=== PATIENT | male | born 1985 | race Caucasian/White ===

== ENCOUNTER → 2017-05-08 | Outpatient (CLI) | payer OTHER ==
[~2017-05-08] VITALS: Ht 190.5 cm; Wt 124.4 kg
[~2017-05-08] MED LIST: ACETAMINOPHEN 1000 MG/100 ML VIAL IV ONE; ACETAMINOPHEN/HYDROcodone 325 MG/5 MG TAB PO PRN; BUPIVACAINE/EPINEPHRINE 0.5% PF 30 ML VIAL ONE; CEPH500C3 PO; CHLORHEXIDINE GLUCONATE 2 % 1 PACK (2 CLOTHS) TOPICAL PRN; DEXAMETHASONE SOD PHOS 4 MG/ML VIAL ONE; DO NOT ADM ANY ANTICOAGULANT DRUGS PRN; FAMOTIDINE 20 MG/2 ML VIAL ONE; INSULIN HUMAN REGULAR 1,000 UNITS/10 ML VIAL SQ PRN; LACTATED RINGER'S 1000 ML INJ 1,000 ML IV ONE; LACTATED RINGER'S 1000 ML IV PRN; LOSA50TA PO; LOSARTAN 50 MG TAB PO SCH; METOPROLOL TARTRATE 25 MG TAB PO PRN; MIDAZOLAM HCL 2 MG/2 ML VIAL ONE; NORC5TAB PO; ONDANSETRON HCL 4 MG/2 ML VIAL IV PUSH ONE; POVIDONE IODINE 5% (ANTISEPSIS KIT) 4 APPLICATIONS EACH NARE PRN; PROPOFOL 200 MG/20 ML AMP IV ONE; SUGAMMADEX SODIUM 200 MG/2 ML VIAL IV PUSH ONE; Z.0.NO CURRENT MEDS; fentaNYL CITRATE 250 MCG/5 ML AMP ONE
[2017-05-08 12:16] VITALS: BP 165/89; PULSE 67; RESP 18; TEMP 97.4; O2SAT 98
[2017-05-08 12:31] LABS: AUTOMATED NEUTROPHIL # 3.7 TH/MM3 (1.8-7.7); BASOPHIL # 0.1 TH/MM3 (0-0.2); BASOPHIL % 1.3 % (0.0-2.0); EOSINOPHIL # 0.1 TH/MM3 (0-0.4); HEMATOCRIT 43.4 % (39.0-51.0); HEMO FLAGS DIFF FINAL; LYMPH % 31.8 % (9.0-44.0); LYMPHOCYTE # 2.1 TH/MM3 (1.0-4.8); MEAN CELL VOLUME 83.5 FL (80.0-100.0); MEAN CORPUSCULAR HEMOGLOBIN 28.6 PG (27.0-34.0); MEAN CORPUSCULAR HGB CONC 34.3 % (32.0-36.0); MONO % 9.2 % (0.0-8.0); NEUT % 55.7 % (16.0-70.0); PLATELET COUNT 214 TH/MM3 (150-450); RED CELL DISTRIBUTION WIDTH 13.5 % (11.6-17.2); WHITE BLOOD COUNT 6.6 TH/MM3 (4.0-11.0)
[2017-05-08 12:48] LABS: BICARBONATE 25.7 MEQ/L (21.0-32.0); POTASSIUM 4.1 MEQ/L (3.5-5.1)
--- NOTE | 2017-05-08 15:15 | HHI.PR ---
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
[2017-05-08 17:00] VITALS: BP 141/89; PULSE 73; RESP 16; TEMP 98.8; O2SAT 96
--- NOTE | 2017-05-09 13:33 | MP ---
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 PROCEDURE 1. Identification of parathyroid adenoma right inferior gland with navigator probe 2. Right inferior parathyroidectomy 3 utilization of neuro monitoring ANESTHESIA General SURGEON Dr. Araujo INDICATION This is a pleasant 32-year-old gentleman who had longstanding hypercalcemia with an elevated PTH and recurrent kidney stones. Plans were made for above after sestamibi scan showed a hyperactive gland in the right inferior portion of the neck. PROCEDURE The patient taken to the operating room, placed in the supine position. After endotracheal anesthesia, his neck was prepped with Betadine. Prior to prepping and draping, we did identify a hot spot in the right inferior side of the neck corresponding to the parathyroid scan. He had been injected about an hour and a half prior to the surgical procedure. We then prepped and draped, a time-out was done, we marked the area in the right neck about 3 cm from the midline, anesthetized with a Marcaine solution. An incision was made about a centimeter and a half. We dissect down through the platysma muscle which was divided, the strap muscles were then divided along the muscle fibers in a vertical fashion. We dissect down where the count was as great as 400 compared to 142 at the contralateral side. We were able to see the thyroid gland and just medial to the carotid was a 2 cm parathyroid adenoma which was easily teased away from the surrounding tissues. There was a single nerve like structure which did not show up on the neuro monitor, but this injury was avoided to this structure. It was somewhat nerve like. The parathyroid adenoma was easily enucleated out from the surrounding tissues using this blunt dissection with a Kitner. Once the blood supply was elevated, we were able to amputate this single vascular structure and ligate it with the harmonic scalpel. This was then measured to be 2 cm and sent down to pathology where Dr. Leung states this is a hypercellular cells consistent with the primary hyperparathyroidism with the clinical picture that I described to him. The area was then irrigated. We checked our side again with the navigator probe. There were no other hot spots, all uniform in four quadrants of the neck. We then assured hemostasis. The platysma muscles were then reapproximated with 3-0 Vicryl and skin with 4-0 Vicryl. Steri-Strips applied. A sterile bandage applied. The patient tolerated the procedure well and had no immediate postop complications. He was extubated in the recovery room and had normal functioning cords. Discussion with the was done and he will follow up with me next week or so with stat calcium levels pending. Vik Araujo MD JLEANDER/NAGA /3:45 PM /1:25 PM LUCIO
== END ==
LOC: EDSTATUS 11:30 → HSDC 11:36
PROVIDERS: ATTEND Surgery
DX: D35.1 Benign neoplasm of parathyroid gland (principal); E83.52 Hypercalcemia
CPT/HCPCS: 00320; 60500; 78808; 80048; 82310; 85025; 88305; 88331; A9500; J0131; J1100; J2250; J2405; J3010; J7120